=== PATIENT | male | born 1940 | race Hispanic/Latino ===

== ENCOUNTER 2019-10-25 01:09 | Emergency (ER) | payer SELFPAY ==
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
[2019-10-25 03:42] LABS: Basophils % (Auto) 0.5 % (0.0-1.8); Eosinophils # (Auto) 0.2 K/mm3 (0.0-0.4); Eosinophils % (Auto) 2.6 % (0.0-4.3); Hematocrit 38.3 % (35.5-45.6); Hemoglobin 13.2 gm/dl (11.8-15.2); Lymphocytes # (Auto) 1.8 K/mm3 (1.2-5.4); Lymphocytes % (Auto) 26.6 % (13.4-35.0); Mean Corpuscular HGB Conc 34 % (32-34); Mean Corpuscular Volume 90 fl (84-94); Monocytes # (Auto) 0.6 K/mm3 (0.0-0.8); Monocytes % (Auto) 9.3 % (0.0-7.3); Platelet Count 250 K/mm3 (140-440); Red Blood Count 4.26 M/mm3 (3.65-5.03); Red Cell Distribution Width 13.3 % (13.2-15.2)
[2019-10-25 04:03] LABS: Alanine Aminotransferase 17 units/L (7-56); Albumin 4.3 g/dL (3.9-5); BUN/Creatinine Ratio 18; Blood Urea Nitrogen 16 mg/dL (9-20); Calcium 9.1 mg/dL (8.4-10.2); Hemolysis Index 7
--- NOTE | 2019-10-25 05:27 | Cat Scan Report ---
CT ABDOMEN AND PELVIS WITH CONTRAST INDICATION: Right inguinal pain and swelling. Possible hernia. COMPARISON: No relevant prior imaging study available. TECHNIQUE: Axial, coronal and sagittal CT imaging of the abdomen and pelvis was performed after inje ction of 100 cc Omnipaque [address] scans at this location are performed using CT dose re duction for ALARA by means of automated exposure control. FINDINGS: LOWER CHEST: No significant abnormality. LIVER: No significant abnormality. BILIARY: No significant abnormality. PANCREAS: No significant abnormality. SPLEEN: No significant abnormality. ADRENALS: No significant abnormality. KIDNEYS AND URETERS: Subcentimeter cysts are seen bilaterally. No additional significant abnormality. GI TRACT: No significant abnormality of the stomach, small bowel or colon. The appendix is not well- visualized. There is a large right inguinal hernia containing fat and portions of the cecum/ascending colon and the distal ileum without associated acute inflammation. There is a small left inguinal her fly containing fat. PERITONEUM: No free fluid. No free air. No fluid collection. LYMPH NODES: No significant adenopathy. VASCULATURE: The aorta is normal in caliber. The visualized branches of the aorta are patent. There i s moderate generalized atherosclerosis. URINARY BLADDER: No significant abnormality. REPRODUCTIVE ORGANS: No significant abnormality. ADDITIONAL FINDINGS: None. SKELETAL SYSTEM: Degenerative changes are seen throughout the spine. No acute abnormality. IMPRESSION: 1. Large right inguinal hernia containing colon and small bowel without acute inflammation. 2. No other acute abnormality of the abdomen or pelvis. Signer Name: Tramaine Santiago MD Signed: 10/25/2019 5:22 AM Workstation Name: [id number]
[2019-10-25 06:53] VITALS: BP 145/80
== END 2019-10-25 06:15 | disposition home or self-care (01) ==
LOC: ED 01:09
DX: K40.90 Unilateral inguinal hernia, without obstruction or gangrene, not specified as recurrent (principal); E11.9 Type 2 diabetes mellitus without complications; Z79.899 Other long term (current) drug therapy
CPT/HCPCS: 36415; 74177; 80053; 85025; 99284; Q9967

== ENCOUNTER 2019-11-22 14:37 | Outpatient (CLI) | payer OTHER ==
--- NOTE | 2019-11-22 15:24 | XRay Report ---
CHEST 2 VIEWS INDICATION: Z01.810 ENCOUNTER FOR PREPROCEDURAL CARDIOVASCULAR EXAMINATION. COMPARISON: None FINDINGS: Support devices: None. Heart: Within normal limits. Lungs/pleura: No acute air space or interstitial disease. No pneumothorax. Additional findings: None. IMPRESSION: Unremarkable chest films. Signer Name: Ace Lou Jr, MD Signed: 11/22/2019 3:20 PM Workstation Name: [id number]
== END 2019-11-22 14:38 | disposition home or self-care (01) ==
LOC: XRAY 14:37
PROVIDERS: ATTEND Internal Medicine
DX: Z01.810 Encounter for preprocedural cardiovascular examination (principal)
CPT/HCPCS: 71046

== ENCOUNTER 2019-11-24 12:22 | Outpatient (CLI) | payer OTHER ==
[2019-11-24 13:03] LABS: Alanine Aminotransferase 20 units/L (7-56); Albumin 4.2 g/dL (3.9-5); BUN/Creatinine Ratio 13; Blood Urea Nitrogen 12 mg/dL (9-20); Calcium 8.9 mg/dL (8.4-10.2); HDL Cholesterol 42 mg/dL (40-59); Hemolysis Index 18; LDL Cholesterol,Direct 118 mg/dL (50-130)
== END 2019-11-24 12:23 | disposition home or self-care (01) ==
LOC: LAB 12:22
PROVIDERS: ATTEND Internal Medicine
DX: Z01.810 Encounter for preprocedural cardiovascular examination (principal); E78.5 Hyperlipidemia, unspecified; E11.65 Type 2 diabetes mellitus with hyperglycemia
CPT/HCPCS: 36415; 80053; 80061; 83036

== ENCOUNTER 2020-04-04 10:00 | Day surgery (SDC) | payer MEDICAID, OTHER ==
[2020-04-02 11:09] LABS: Hematocrit 41.5 % (35.5-45.6); Mean Corpuscular HGB Conc 34 % (32-34); Mean Corpuscular Volume 90 fl (84-94); Platelet Count 225 K/mm3 (140-440); Red Blood Count 4.61 M/mm3 (3.65-5.03)
--- NOTE | 2020-04-04 07:38 | Short Stay Summary ---
Short Stay Documentation Date of service: 04/04/20 - History H&P: obtained from office - Allergies and Medications Current Medications: Allergies No Known Allergies Allergy (Verified 03/27/20 13:29) Home Medications Medication Instructions Recorded Confirmed Last Taken Type Metformin HCl [metFORMIN] 1,000 mg PO BID 03/27/20 03/27/20 Unknown History - Physical exam General appearance: no acute distress Integumentary: no rash HEENT: Atraumatic Lungs: Normal air movement Male Genitourinary: right inguinal hernia Neurological: Normal speech - Brief post op/procedure progress note Date of procedure: 04/04/20 (dictation:[id number]) Pre-op diagnosis: BIH Post-op diagnosis: same Procedure: robotic assisted lap BIH repair with mesh IVF - 1100cc EBL min Anesthesia: GETA Findings: large, scarred in RIH, and large LIH Surgeon: HOMERO PAINTING [employer] Installer: ONELIA BOUCHER Estimated blood loss: minimal Pathology: none Condition: stable - Hospital course Hospital course: uneventful - Disposition Condition at discharge: Stable Disposition: DC-01 TO HOME OR SELFCARE Short Stay Discharge Plan Activity: advance as tolerated Diet: regular Wound: open to air, keep clean and dry Special Instructions: no heavy lifting Additional Instructions: Post Operative Instructions Activity: no heavy lifting for next 1 week. May shower tomorrow. Pat dry the wound or wounds. Keep incision sites clean and dry After surgery, start with a light diet. Consider starting with liquids. If you do well, you can advance to a regular diet as you feel comfortable. Apply an ice pack to the wound or wounds for 10-20 minutes at a time. Do this at least 4-5 times a day. You can do it more if he would like. Pain Medication Schedule for the first 2 days after surgery: Gabapentin 300mg twice a day Celebrex (celecoxib) 200mg twice a day Tylenol 500mg four times a day (every 6 hours) After the first 2 days, then take alternating doses of ibuprofen and Tylenol as needed for pain. Take 600 mg of ibuprofen every 6 hours as needed. Take 500 mg of Tylenol every 6 hours as needed. You should alternate these 2 medicines. Make sure you take the ibuprofen with food. It is very important that you use the prescription narcotic pain medicine (hydrocodone) only for very severe pain. Do not take the narcotic medicine before you try using all the medications listed above. We will call you in a couple of days to see how youre doing. If you have any questions or concerns, always feel free to call the clinic ([phone]) at any time. Follow up with: KRISTINA SAINI MD [Primary Care Provider] - 7 Days HOMERO PAINTING MD [Staff Physician] - 7 Days Forms: Outpatient Surgery DC Inst. Prescriptions: Celecoxib [celeBREX] 200 mg PO BID #4 cap Gabapentin 300 mg PO BID #4 cap HYDROcodone/APAP 5-325 [[place] 5/325] 1 each PO Q6HR PRN #10 tablet PRN Reason: Pain , Severe (7-10)
[~2020-04-04 10:00] MED LIST: ACETAMINOPHEN 500 MG TAB PO NR; CELECOXIB 200 MG CAP PO NR; GABAPENTIN 300 MG CAP PO NR; SODIUM CHLORIDE 0.9% 1000 ML 1,000 ML IV SCH; ceFAZolin/Water 2 GM/20 ML 2 GM/20 ML SYRINGE IV NR
[2020-04-04 11:05] LABS: BUN/Creatinine Ratio 28; Blood Urea Nitrogen 25 mg/dL (9-20); Calcium 9.3 mg/dL (8.4-10.2); Hemolysis Index 41
[2020-04-04] MEDS ORDERED: HYDROmorphone 1 MG/1 ML INJ IV PRN (11:25)
[2020-04-04] MEDS ORDERED: ONDANSETRON 4 MG/2 ML INJ IV PRN (11:25)
--- NOTE | 2020-04-04 11:30 | Anesthesia Day of Surgery ---
Anesthesia Day of Surgery - Day of Surgery Patient Examined: Yes Patient H&P Reviewed: Yes Patient is NPO: Yes
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
[2020-04-04] MEDS ORDERED: MIDAZOLAM 2 MG/2 ML INJ IV NR (12:00)
[2020-04-04] MEDS ORDERED: LIDOCAINE (1%) 10 MG/1 ML VIAL 20 ML MDV ONE (13:28)
[2020-04-04] MEDS ORDERED: BUPIVACAINE-EPINEPHRINE/PF 0.5%-1:200,000 (30 ML) VIAL INFILTRATI ONE ×2 (13:28→15:04)
[2020-04-04] MEDS ORDERED: ONDANSETRON 4 MG/2 ML INJ ONE (13:57)
[2020-04-04] MEDS ORDERED: propofoL 200 MG/20 ML VIAL IV ONE (13:57)
[2020-04-04] MEDS ORDERED: ROCURONIUM 50 MG/5 ML INJ IV ONE (13:57)
[2020-04-04] MEDS ORDERED: LIDOCAINE MPF (2%) 20 MG/1 ML VIAL 5 ML ONE ×2 (13:57→13:58)
[2020-04-04] MEDS ORDERED: dexAMETHasone 20 MG/5 ML VIAL ONE (13:57)
[2020-04-04] MEDS ORDERED: HYDROmorphone 1 MG/1 ML INJ ONE (13:57)
[2020-04-04] MEDS ORDERED: LIDOCAINE (1%) 10 MG/1 ML VIAL 20 ML MDV INFILTRATI ONE (15:04)
[2020-04-04] MEDS ORDERED: SODIUM CHLORIDE 0.9% IRR 1,500 ML BOTTLE IR ONE (15:06)
[2020-04-04] MEDS ORDERED: NEOSTIGMINE 10MG/10 ML INJ MDV ONE (17:32)
[2020-04-04] MEDS ORDERED: GLYCOPYRROLATE 0.4 MG/2 ML INJ ONE (17:32)
[2020-04-04] MEDS ORDERED: KETOROLAC 30 MG/1 ML INJ ONE (17:33)
--- NOTE | 2020-04-04 18:11 | Operative Report ---
PREOPERATIVE DIAGNOSIS: Bilateral inguinal hernias, right greater than left. Right has an inguinal scrotal hernia. POSTOPERATIVE DIAGNOSIS: Bilateral inguinal hernias, right greater than left. Right has an inguinal scrotal hernia. PROCEDURE: Robotic-assisted laparoscopic bilateral inguinal hernia repair. ATTENDING PHYSICIAN: Shaheen Tobar MD CONSOLIDATOR: Dr. Nicole. ANESTHESIA: General. ESTIMATED BLOOD LOSS: Minimal. FLUIDS: 1100 mL. FINDINGS: Large right indirect inguinal scrotal hernia on the right. Cecum, appendix and omentum were found in the hernia sac. A large cord lipoma was also removed. On the left, the patient had a moderate sized left indirect inguinal hernia with a large cord lipoma. IMPLANTS: Bard large left and right 3DMax mesh. DRAINS: None. DISPOSITION: Stable, transferred to Recovery Room. INDICATIONS: This is an 79-year-old male who presented to the office with complaints of chronic large right inguinal hernia that causes him discomfort. It has gotten larger over time. Denies any fevers, chills, nausea, vomiting, generalized abdominal pain and difficulty eating or having bowel movements. The patient was also noted to have a small inguinal hernia on the left. The patient was assessed to be need for robotic repair. Procedure, risks, benefits were explained to the patient. Risks include but were not limited to infection, bleeding, pain, injury to surrounding structures, possible recurrence, possible need for further procedures in the future. The patient understood and consented. OPERATIVE NOTE: The patient was brought to the operating room and placed on the table in supine position. After adequate general anesthesia was established, the patient was prepped and draped in usual sterile fashion. SCDs were in place. Antibiotics have been given prior to start of the case. Timeout was called. I began by placing a Veress needle in left upper quadrant. I was able to insufflate on the first attempt. This was replaced with a 5 mm port that I inserted using the Optiview technique. I entered the peritoneal cavity safely. There was no injury to the underlying structures. We examined the abdomen. We noted a large inguinal hernia on the right that we could see colon going in to. On the left, the sigmoid was adhered over the site of the hernia. Under direct vision, a 12 mm port was placed in the supraumbilical position a couple of centimeters above the umbilicus and almost in line on either side, two 8 mm ports were placed. Gauze was inserted. The patient was appropriately positioned. Robot was docked. I then proceeded to the console. I began by creating a flap on the right side approximately 8 cm above the hernia. I was able to get into the proper plane easily. Wide dissection was done, the hernia sac contents, cord lipoma were all densely adhered to the surrounding tissue. Extra time was required for the dissection. The sac itself was very densely adhered to the cord structures, but we eventually were able to dissect it off intact. I saw no evidence of a direct hernia. No femoral hernia or obturator. We had dissected out the pubic symphysis and pubic rami very nicely. Just a thin layer of fat was over them. We had 2 cm of clearance below the pubic symphysis and the space of Retzius and the entire line from that to the anterosuperior iliac spine was dissected free. The large mesh fit very nicely. We did the same thing on the left side. On the left side, we found a moderate sized hernia sac, but a very large cord lipoma. We were able to successfully get both dissected out. End result on both sides, we could see the cord structures very nicely. The blood supply was maintained. There was no injury to those areas. We had no concerns of any bleeding. The dissection was nice and wide. We checked to make sure the peritoneum was not still adhered to the cord structures as we lifted and pulled back the edge of the flap. There was no peritoneum that was being tented up. The mesh was secured to the pubic tubercle on both sides with 2-0 Vicryl stitch as well as 2 lateral stitches were placed. The mesh laid very well. The flap was closed with a running 3-0 V-Loc suture starting in the middle and going to either side. Everything looked very good at the end. We converted back to laparoscopic case. I removed the needles and the sponge. Our counts were correct. Abdomen was desufflated according to the virus protocol. We then removed the ports. 2-0 PDS suture was used to close the umbilical fascia in a [id number] stitch. Additional local was injected, 4-0 Monocryl subcuticular stitches were then placed. Skin was cleaned and dried. The patient tolerated the procedure well. The skin was closed with Dermabond. All counts were correct at the end of the case. JOB# [id number] SHAY/SERGO VILLATORO
--- NOTE | 2020-04-04 21:40 | Post Anesthesia Evaluation ---
- Post Anesthesia Evaluation Patient Participated: Yes Airway Patent: Yes Stable Respiratory Function: Yes Nausea/Vomiting: No Temp > 96.8F: Yes Pain Manageable: Yes Adequeate Hydration: Yes Anesthesia Complications: No Block Receding Appropriately: Not Applicable Patient on Ventilator: No
[2020-04-04 22:10] VITALS: BP 162/62
== END 2020-04-04 10:01 | disposition home or self-care (01) ==
LOC: OR 10:00
PROVIDERS: ATTEND Surgery
DX: K40.20 Bilateral inguinal hernia, without obstruction or gangrene, not specified as recurrent (principal); E78.00 Pure hypercholesterolemia, unspecified; J45.909 Unspecified asthma, uncomplicated; Z11.59 Encounter for screening for other viral diseases; E11.42 Type 2 diabetes mellitus with diabetic polyneuropathy; G62.9 Polyneuropathy, unspecified; Z79.899 Other long term (current) drug therapy; Z79.84 Long term (current) use of oral hypoglycemic drugs; Z98.49 Cataract extraction status, unspecified eye; Z98.890 Other specified postprocedural states
CPT/HCPCS: 36415; 49650; 80048; 82962; 85027; C1781; J0690; J1100; J1170; J1885; J2250; J2405; J2704; J2710; J7030; S2900; U0003

== ENCOUNTER 2020-07-05 08:08 | Day surgery (SDC) | payer MEDICAID ==
[~2020-07-05 08:08] MED LIST changes: -ACETAMINOPHEN 500 MG TAB PO NR; -CELECOXIB 200 MG CAP PO NR; -GABAPENTIN 300 MG CAP PO NR; -ceFAZolin/Water 2 GM/20 ML 2 GM/20 ML SYRINGE IV NR
--- NOTE | 2020-07-05 09:21 | Anesthesia Day of Surgery ---
Anesthesia Day of Surgery - Day of Surgery Patient Examined: Yes Patient H&P Reviewed: Yes Patient is NPO: Yes
--- NOTE | 2020-07-05 09:21 | Anesthesia Consultation ---
Anesthesia Consult and Med Hx Date of service: 07/05/20 - Airway Anesthetic Teeth Evaluation: Poor ROM Head & Neck: Adequate Mental/Hyoid Distance: Adequate Mallampati Class: Class III Intubation Access Assessment: Possibly Difficult - Pulmonary Exam CTA: Yes - Cardiac Exam Cardiac Exam: RRR - Pre-Operative Health Status ASA Pre-Surgery Classification: ASA2 Proposed Anesthetic Plan: MAC - Pulmonary Hx Smoking: No Hx Respiratory Symptoms: No Hx Sleep Apnea: No (MOIZ PRE SCREEN LOW RISK.) - Cardiovascular System Hx Hypertension: Yes Hx Heart Attack/AMI: No Hx Percutaneous Transluminal Coronary Angioplasty (PTCA): No Hx Cardia Arrhythmia: No - Central Nervous System Hx Neuromuscular Disorder: No (peripheral neuropathy) CVA: No - Gastrointestinal Hx Gastroesophageal Reflux Disease: No - Endocrine Hx Renal Disease: No Hx Liver Disease: No Hx Non-Insulin Dependent Diabetes: Yes Hx Thyroid Disease: No - Other Systems Hx Obesity: No
[2020-07-05] MEDS ORDERED: LIDOCAINE MPF (2%) 20 MG/1 ML VIAL 5 ML ONE (09:30)
[2020-07-05] MEDS ORDERED: propofoL 200 MG/20 ML VIAL IV ONE ×3 (10:22→10:57)
--- NOTE | 2020-07-05 11:14 | Procedure Note ---
Date of procedure: 07/05/20 Pre-op diagnosis: Colon Polyp Screening/ F/H/O Cancer (sister-Colon Cancer) Post-op diagnosis: other (Multiple,Proximal Colon Polyps/ Solitary, Transverse Colon Polyp/ Small,Rectal Polyps (possibly hyperplastic)/Scattered diverticuli/ Minor,Internal Hemorrhoid) Procedure: Colonoscopy with Hot Snare Polypectomy and cold Biopsy Anesthesia: [facility] [place] Surgeon: SARAH MCALLISTER Estimated blood loss: minimal Pathology: list Specimen disposition: to lab Condition: stable Disposition: same day (Avoid aspirin and NSAID for 5 days; otherwise resume home medication. Encourage fiber intake and follow up in 1 to 2 weeks ([phone]).)
--- NOTE | 2020-07-05 11:22 | Operative Report ---
INDICATIONS: This is an 79-year-old white male with a family history of cancer. The patient's sister had colon cancer. The patient never had a colonoscopy before. Colonoscopy was done as part of colon polyp screening. DESCRIPTION OF PROCEDURE: The procedure was done after getting informed consent with MAC anesthesia. Initial rectal exam was unremarkable. Instrument was passed through the rectum onto the cecum, which was identified by the ileocecal valve and the appendiceal orifice. Visualization was fair. There were multiple polyps that were noted in the proximal colon that were removed by hot snare polypectomy. These were about 10-12 mm in diameter and they were retrieved. There were scattered diverticula noted throughout the colon, most pronounced in the left colon and the transverse colon. In the transverse colon, there was a 12-13 mm polyp that was sessile that was removed by hot snare polypectomy and retrieved. The remaining part of the transverse colon and the descending colon and sigmoid showed normal mucosa other than for the presence of some scattered diverticula and the rectum showed multiple small polyps, possibly hyperplastic, that were removed by cold biopsy. There was minimal bleeding associated with the procedure. No complications associated with the procedure. The rectum showed minor internal hemorrhoids. ASSESSMENT: Colon polyp screening, family history of cancer, the patient's sister had colon cancer. Multiple proximal colon polyps that were removed by snare excision, a solitary transverse colon polyp that was also removed by hot snare polypectomy, a rectal polyp, scattered diverticula and minor internal hemorrhoids. Again, there was minimal bleeding associated with the procedure. No complications associated with the procedure. PLAN: The patient will be asked to avoid aspirin and aspirin-related products for the next few days. Encouraged to take fiber supplements. Otherwise, resume home medication and follow up in the office in 1-2 weeks' time. The procedure was done in the GI lab with the assistance of the GI lab team, which included LEONARDO Caal, assistance with melissa Rogers and also with the assistance of anesthesia. JOB# [id number] MARIAH/SERGO
--- NOTE | 2020-07-05 11:43 | Post Anesthesia Evaluation ---
- Post Anesthesia Evaluation Patient Participated: Yes Airway Patent: Yes Stable Respiratory Function: Yes Nausea/Vomiting: No Temp > 96.8F: Yes Pain Manageable: Yes Adequeate Hydration: Yes Anesthesia Complications: No
[2020-07-05 12:19] VITALS: BP 131/67
== END 2020-07-05 12:35 | disposition home or self-care (01) ==
LOC: GIO 08:08
DX: Z12.11 Encounter for screening for malignant neoplasm of colon (principal); K62.1 Rectal polyp; K64.8 Other hemorrhoids; D12.3 Benign neoplasm of transverse colon; D12.2 Benign neoplasm of ascending colon; K57.30 Diverticulosis of large intestine without perforation or abscess without bleeding; E11.39 Type 2 diabetes mellitus with other diabetic ophthalmic complication; E78.00 Pure hypercholesterolemia, unspecified; I10 Essential (primary) hypertension; Z79.899 Other long term (current) drug therapy; Z79.84 Long term (current) use of oral hypoglycemic drugs; Z98.49 Cataract extraction status, unspecified eye; Z80.0 Family history of malignant neoplasm of digestive organs; Z98.890 Other specified postprocedural states
CPT/HCPCS: 45380; 45385; 82962; 88305; J2704; J7030

== ENCOUNTER 2020-11-27 09:31 | Outpatient (CLI) | payer MEDICAID ==
[2020-11-27 10:01] LABS: Basophils # (Auto) 0.1 K/mm3 (0.0-0.1); Basophils % (Auto) 1.7 % (0.0-1.8); Eosinophils # (Auto) 0.1 K/mm3 (0.0-0.4); Eosinophils % (Auto) 2.4 % (0.0-4.3); Hematocrit 44.9 % (35.5-45.6); Lymphocytes # (Auto) 1.4 K/mm3 (1.2-5.4); Lymphocytes % (Auto) 22.3 % (13.4-35.0); Mean Corpuscular HGB Conc 33 % (32-34); Mean Corpuscular Volume 90 fl (84-94); Monocytes # (Auto) 0.6 K/mm3 (0.0-0.8); Monocytes % (Auto) 9.3 % (0.0-7.3); Platelet Count 279 K/mm3 (140-440); Red Cell Distribution Width 14.3 % (13.2-15.2)
[2020-11-27 10:43] LABS: Chol/HDL Ratio 3.66 %
== END 2020-11-27 09:32 | disposition home or self-care (01) ==
LOC: LAB 09:31
PROVIDERS: ATTEND Internal Medicine
DX: I10 Essential (primary) hypertension (principal); E55.9 Vitamin D deficiency, unspecified; E11.65 Type 2 diabetes mellitus with hyperglycemia; Z00.00 Encounter for general adult medical examination without abnormal findings; Z13.29 Encounter for screening for other suspected endocrine disorder
CPT/HCPCS: 36415; 80053; 80061; 82306; 82607; 83036; 84443; 85025

== ENCOUNTER 2021-05-21 09:28 | Outpatient (CLI) | payer MEDICAID ==
[2021-05-24 19:02] LABS: Vitamin D, 25-OH, D2 <4 ng/mL
== END 2021-05-21 09:29 | disposition home or self-care (01) ==
LOC: LAB 09:28
PROVIDERS: ATTEND Internal Medicine
DX: E11.65 Type 2 diabetes mellitus with hyperglycemia (principal); E55.9 Vitamin D deficiency, unspecified
CPT/HCPCS: 36415; 82306; 83036

== ENCOUNTER 2021-06-27 08:04 | Day surgery (SDC) | payer MEDICAID ==
[2021-06-27] MEDS ORDERED: propofoL 200 MG/20 ML VIAL IV ONE ×2 (09:14→09:31)
[2021-06-27] MEDS ORDERED: LIDOCAINE MPF (2%) 20 MG/1 ML VIAL 5 ML ONE (09:14)
--- NOTE | 2021-06-27 09:17 | Anesthesia Consultation ---
Anesthesia Consult and Med Hx Date of service: 06/27/21 - Airway Anesthetic Teeth Evaluation: Caps ROM Head & Neck: Adequate Mental/Hyoid Distance: Adequate Mallampati Class: Class I Intubation Access Assessment: Good - Cardiac Exam Cardiac Exam: RRR - Pre-Operative Health Status ASA Pre-Surgery Classification: ASA2 Proposed Anesthetic Plan: MAC - Pulmonary Hx Smoking: No Hx Asthma: Yes (NO MEDS. +2FS, uses inhaler) Hx Respiratory Symptoms: No Hx Sleep Apnea: No (MOIZ PRE SCREEN LOW RISK.) - Cardiovascular System Hx Hypertension: Yes Hx Heart Attack/AMI: No Hx Percutaneous Transluminal Coronary Angioplasty (PTCA): No Hx Cardia Arrhythmia: No - Central Nervous System Hx Neuromuscular Disorder: No (peripheral neuropathy) CVA: No - Gastrointestinal Hx Gastroesophageal Reflux Disease: No - Endocrine Hx Renal Disease: No Hx Liver Disease: No Hx Non-Insulin Dependent Diabetes: Yes (metformin) Hx Thyroid Disease: No - Other Systems Hx Cancer: No Hx Obesity: No
--- NOTE | 2021-06-27 09:18 | Anesthesia Day of Surgery ---
Anesthesia Day of Surgery - Day of Surgery Patient Examined: Yes Patient is NPO: Yes Tunde's Test: N/A
--- NOTE | 2021-06-27 10:21 | Procedure Note ---
Date of procedure: 06/27/21 Pre-op diagnosis: H/O Colon Polyps Post-op diagnosis: other (Multiple, Colon Polyps (x9, in the Proximal colon, and Proximal transverse colon and Transverse Colon)/ Moderate, Diverticular Disease/ Mild to Moderate, Internal Hemorrhoids) Procedure: Colonoscopy with Hot and Cold Snare Polypectomy and Cold Biopsy and use of a Jang Net Anesthesia: MAC Surgeon: SARAH MCALLISTER Estimated blood loss: minimal Pathology: list Specimen disposition: to lab Condition: stable Disposition: same day (Avoid aspirin and NSAID and anticoagulants for 5 days; resume home medication and encourage fiber intake and follow up in 1 to 2 weeks ([phone]).)
[2021-06-27 10:26] VITALS: BP 164/77
--- NOTE | 2021-07-11 11:06 | Operative Report ---
DATE OF SURGERY: 06/27/2021 PROCEDURE: Colonoscopy with snare polypectomy. INDICATIONS: This is an 80-year-old white male with a family history of cancer. He had multiple colon polyps removed a year ago. Repeat colonoscopy was done on 06/27/2021 to see whether he had any additional polyps. DESCRIPTION OF PROCEDURE: Procedure was done after getting informed consent with MAC anesthesia. Initial rectal examination was unremarkable. The instrument was passed through the rectum onto the cecum which was identified with the ileocecal valve. The patient had multiple colon polyps, possibly 9 in number, which were mainly in the proximal colon and also in the proximal transverse colon. These were mainly removed by hot as well as cold snare polypectomy and cold biopsy. One polyp was large and had to be removed using a Jang Net with withdrawal of the scope. In addition, the remaining part of the transverse colon and the left colon showed moderate diverticular disease and the rectum showed minor internal hemorrhoid. There was minimal bleeding associated with the procedure. No complications associated with the procedure. ASSESSMENT: History of colon polyps, multiple colon polyps, at least 9 were removed from the proximal colon and the proximal transverse colon. The patient had moderate diverticular disease and mild to moderate internal hemorrhoid. The patient will be asked to avoid aspirin and aspirin-related products and anticoagulants for the next 5 days. Resume home medication. Encouraged fiber intake and follow up in 1-2 weeks' time. Procedure was done in the GI lab with assistance of the GI lab team which included the GI nurse, the upholstery tech and with assistance of Anesthesia. TID: [id number] RECEIPT: [id number] [place]
== END 2021-06-27 10:50 | disposition home or self-care (01) ==
LOC: GIO 08:04
DX: Z08 Encounter for follow-up examination after completed treatment for malignant neoplasm (principal); D12.3 Benign neoplasm of transverse colon; D12.2 Benign neoplasm of ascending colon; K64.0 First degree hemorrhoids; J45.909 Unspecified asthma, uncomplicated; I10 Essential (primary) hypertension; E78.00 Pure hypercholesterolemia, unspecified; E11.9 Type 2 diabetes mellitus without complications; K63.89 Other specified diseases of intestine; Z85.038 Personal history of other malignant neoplasm of large intestine; Z80.0 Family history of malignant neoplasm of digestive organs; Z86.010 Personal history of colon polyps; Z79.84 Long term (current) use of oral hypoglycemic drugs; Z79.899 Other long term (current) drug therapy; Z98.890 Other specified postprocedural states
CPT/HCPCS: 45380; 45385; 82962; 88305; J2704; J7030

== ENCOUNTER 2021-09-22 11:50 | Outpatient (CLI) | payer MEDICAID ==
[2021-09-22 12:42] LABS: Chol/HDL Ratio 3.64 %
== END 2021-09-22 11:51 | disposition home or self-care (01) ==
LOC: LAB 11:50
PROVIDERS: ATTEND Internal Medicine
DX: E11.65 Type 2 diabetes mellitus with hyperglycemia (principal); E78.5 Hyperlipidemia, unspecified
CPT/HCPCS: 36415; 80061; 83036

== ENCOUNTER 2021-12-09 11:03 | Outpatient (CLI) | payer MEDICAID ==
[2021-12-09 11:43] LABS: Basophils % (Auto) 0.5 % (0.0-1.8); Eosinophils # (Auto) 0.2 K/mm3 (0.0-0.4); Eosinophils % (Auto) 2.8 % (0.0-4.3); Hematocrit 42.3 % (35.5-45.6); Hemoglobin 13.5 gm/dl (11.8-15.2); Lymphocytes # (Auto) 1.5 K/mm3 (1.2-5.4); Lymphocytes % (Auto) 23.4 % (13.4-35.0); Mean Corpuscular HGB Conc 32 % (32-34); Mean Corpuscular Volume 91 fl (84-94); Monocytes # (Auto) 0.5 K/mm3 (0.0-0.8); Monocytes % (Auto) 7.9 % (0.0-7.3); Platelet Count 233 K/mm3 (140-440); Red Blood Count 4.64 M/mm3 (3.65-5.03); Red Cell Distribution Width 13.6 % (13.2-15.2)
[2021-12-09 12:22] LABS: Alanine Aminotransferase 18 units/L (7-56); Albumin 4.5 g/dL (3.9-5); BUN/Creatinine Ratio 19; Blood Urea Nitrogen 19 mg/dL (9-20); Calcium 9.3 mg/dL (8.4-10.2); HDL Cholesterol 40 mg/dL (40-59); Hemolysis Index 7; LDL Cholesterol,Direct 136 mg/dL (50-130)
== END 2021-12-09 11:04 | disposition home or self-care (01) ==
LOC: LAB 11:03
PROVIDERS: ATTEND Internal Medicine
DX: Z00.00 Encounter for general adult medical examination without abnormal findings (principal); E11.69 Type 2 diabetes mellitus with other specified complication; E78.5 Hyperlipidemia, unspecified; E55.9 Vitamin D deficiency, unspecified; R53.83 Other fatigue
CPT/HCPCS: 36415; 80053; 80061; 82306; 84443; 85025

== ENCOUNTER 2022-04-29 09:22 | Outpatient (CLI) | payer MEDICAID ==
[2022-04-29 11:43] LABS: Chol/HDL Ratio 3.89 %
== END 2022-04-29 09:23 | disposition home or self-care (01) ==
LOC: LAB 09:22
PROVIDERS: ATTEND Internal Medicine
DX: E11.65 Type 2 diabetes mellitus with hyperglycemia (principal); E78.5 Hyperlipidemia, unspecified
CPT/HCPCS: 36415; 80061; 83036